=== PATIENT | male | born 1955 | race Asian ===

== ENCOUNTER 2018-04-01 07:21 | Outpatient (CLI) | payer BC, OTHER ==
[2018-04-01 08:13] LABS: BASOPHILS # (AUTO) 0.1 K/uL (0.0-8.0); BASOPHILS % (AUTO) 1.3 % (0.0-2.0); EOSINOPHILS # (AUTO) 0.1 K/uL (0.0-0.7); EOSINOPHILS % (AUTO) 1.8 % (0.0-7.0); HEMATOCRIT 43.8 % (36.7-47.1); HEMOGLOBIN 14.9 g/dL (12.5-16.3); LYMPHOCYTES # (AUTO) 1.9 K/uL (20.0-40.0); LYMPHOCYTES % (AUTO) 35.6 % (20.5-51.5); MEAN CORPUSCULAR HEMOGLOBIN 30.5 uug (23.8-33.4); MEAN CORPUSCULAR HGB CONC 34 g/dL (32.5-36.3); MEAN CORPUSCULAR VOLUME 89.6 fL (73.0-96.2); MONOCYTES # (AUTO) 0.4 K/uL (2.0-10.0); MONOCYTES % (AUTO) 7.6 % (0.0-11.0); NEUTROPHILS # (AUTO) 2.9 K/uL (1.8-8.9); NEUTROPHILS % (AUTO) 53.7 % (38.5-71.5); PLATELET COUNT (AUTO) 220 K/uL (152-348); RED BLOOD CELL COUNT(AUTO) 4.89 MIL/uL (4.06-5.63); WHITE BLOOD COUNT (AUTO) 5.4 K/uL (3.6-10.2)
[2018-04-01 08:24] LABS: *BILIRUBIN,URIN NEGATIVE (NEGATIVE); *BLOOD, URINE NEGATIVE (NEGATIVE); *CLARITY,URINE CLEAR (CLEAR); *COLOR,URINE YELLOW (YELLOW); *KETONES,URINE NEGATIVE (NEGATIVE); *PROTEIN,URINE NEGATIVE (NEGATIVE); *UROBILINOGEN,URINE 0.2 E.U./dl (NORMAL); LEUKOCYTE ESTERASE ,URINE NEGATIVE (NEGATIVE); NITRITE, URINE NEGATIVE (NEGATIVE); UGLUCOSE NEGATIVE (NEGATIVE)
[2018-04-01 08:56] LABS: BILIRUBIN,TOTAL 0.6 mg/dL (0.2-1.0); CREATININE 0.9 mg/dL (0.6-1.3); POTASSIUM 3.9 mmol/L (3.5-5.1); TOTAL PROTEIN, SERUM 7.8 g/dL (6.4-8.2); URIC ACID 4.5 mg/dL (3.5-7.2)
[2018-04-01 09:17] LABS: THYROID STIMULATING HORMONE 1.914 mIU/mL (0.358-3.740)
[2018-04-02 08:06] LABS: *TESTOSTERONE, SERUM 238 ng/dL (264-916)
== END 2018-04-01 23:59 | disposition home or self-care (01) ==
LOC: LAB 07:21
PROVIDERS: ATTEND Legal Medicine
DX: Z00.00 Encounter for general adult medical examination without abnormal findings (principal)
CPT/HCPCS: 36415; 83550; 84153; 84402; 84403; 84443; 84550; 85025

== ENCOUNTER 2019-04-06 07:32 | Outpatient (CLI) | payer BC, OTHER ==
[2019-04-06 09:35] LABS: BASOPHILS # (AUTO) 0.1 K/uL (0.0-8.0); BASOPHILS % (AUTO) 1.5 % (0.0-2.0); EOSINOPHILS # (AUTO) 0.1 K/uL (0.0-0.7); EOSINOPHILS % (AUTO) 1.4 % (0.0-7.0); HEMATOCRIT 42.9 % (36.7-47.1); HEMOGLOBIN 14.2 g/dL (12.5-16.3); LYMPHOCYTES # (AUTO) 1.5 K/uL (20.0-40.0); LYMPHOCYTES % (AUTO) 31.3 % (20.5-51.5); MEAN CORPUSCULAR HEMOGLOBIN 29.9 uug (23.8-33.4); MEAN CORPUSCULAR HGB CONC 33 g/dL (32.5-36.3); MEAN CORPUSCULAR VOLUME 90.5 fL (73.0-96.2); MONOCYTES # (AUTO) 0.3 K/uL (2.0-10.0); MONOCYTES % (AUTO) 7.5 % (0.0-11.0); NEUTROPHILS # (AUTO) 2.7 K/uL (1.8-8.9); NEUTROPHILS % (AUTO) 58.3 % (38.5-71.5); PLATELET COUNT (AUTO) 218 K/uL (152-348); RED BLOOD CELL COUNT(AUTO) 4.74 MIL/uL (4.06-5.63); WHITE BLOOD COUNT (AUTO) 4.7 K/uL (3.6-10.2)
[2019-04-06 09:36] LABS: *BILIRUBIN,URIN NEGATIVE (NEGATIVE); *BLOOD, URINE NEGATIVE (NEGATIVE); *CLARITY,URINE CLEAR (CLEAR); *COLOR,URINE YELLOW (YELLOW); *KETONES,URINE NEGATIVE (NEGATIVE); *UROBILINOGEN,URINE 0.2 E.U./dl (NORMAL); LEUKOCYTE ESTERASE ,URINE NEGATIVE (NEGATIVE); NITRITE, URINE NEGATIVE (NEGATIVE); PH,URINE 6.5 (5.0-8.0); UGLUCOSE NEGATIVE (NEGATIVE)
[2019-04-06 10:21] LABS: POTASSIUM 3.9 mmol/L (3.5-5.1)
[2019-04-06 10:22] LABS: BILIRUBIN,TOTAL 0.6 mg/dL (0.2-1.0); CREATININE 0.7 mg/dL (0.6-1.3); TOTAL PROTEIN, SERUM 7.5 g/dL (6.4-8.2); URIC ACID 4.8 mg/dL (3.5-7.2)
[2019-04-06 10:43] LABS: THYROID STIMULATING HORMONE 2.314 mIU/mL (0.358-3.740)
[2019-04-07 08:18] LABS: *TESTOSTERONE, SERUM 201 ng/dL (264-916)
== END 2019-04-06 23:59 | disposition home or self-care (01) ==
LOC: LAB 07:32
PROVIDERS: ATTEND Legal Medicine
DX: Z00.00 Encounter for general adult medical examination without abnormal findings (principal); I10 Essential (primary) hypertension
CPT/HCPCS: 36415; 82306; 83550; 84153; 84402; 84403; 84443; 84550; 85025

== ENCOUNTER 2020-07-27 07:19 | Outpatient (CLI) | payer BC, OTHER | END 2020-07-27 23:59 | disposition home or self-care (01) | LOC: LAB 07:19 | PROVIDERS: ATTEND Legal Medicine | DX: Z75.3 Unavailability and inaccessibility of health-care facilities (principal) ==

== ENCOUNTER 2020-08-03 07:25 | Outpatient (CLI) | payer BC, OTHER ==
[2020-08-03 08:20] LABS: BASOPHILS # (AUTO) 0.1 K/uL (0.0-8.0); BASOPHILS % (AUTO) 1.4 % (0.0-2.0); EOSINOPHILS # (AUTO) 0.1 K/uL (0.0-0.7); EOSINOPHILS % (AUTO) 1.8 % (0.0-7.0); HEMATOCRIT 42.4 % (36.7-47.1); HEMOGLOBIN 14.3 g/dL (12.5-16.3); LYMPHOCYTES # (AUTO) 1.4 K/uL (20.0-40.0); LYMPHOCYTES % (AUTO) 28.1 % (20.5-51.5); MEAN CORPUSCULAR HEMOGLOBIN 30.3 uug (23.8-33.4); MEAN CORPUSCULAR HGB CONC 34 g/dL (32.5-36.3); MEAN CORPUSCULAR VOLUME 89.9 fL (73.0-96.2); MONOCYTES # (AUTO) 0.4 K/uL (2.0-10.0); MONOCYTES % (AUTO) 8.2 % (0.0-11.0); NEUTROPHILS # (AUTO) 2.9 K/uL (1.8-8.9); NEUTROPHILS % (AUTO) 60.5 % (38.5-71.5); PLATELET COUNT (AUTO) 244 K/uL (152-348); RED BLOOD CELL COUNT(AUTO) 4.72 MIL/uL (4.06-5.63); WHITE BLOOD COUNT (AUTO) 4.8 K/uL (3.6-10.2)
[2020-08-03 08:41] LABS: BILIRUBIN,TOTAL 0.7 mg/dL (0.2-1.0); CREATININE 0.9 mg/dL (0.6-1.3); TOTAL PROTEIN, SERUM 7.8 g/dL (6.4-8.2)
[2020-08-03 08:42] LABS: THYROID STIMULATING HORMONE 2.173 mIU/mL (0.358-3.740)
== END 2020-08-03 23:59 | disposition home or self-care (01) ==
LOC: LAB 07:25
PROVIDERS: ATTEND Legal Medicine
DX: I10 Essential (primary) hypertension (principal); E11.9 Type 2 diabetes mellitus without complications; E78.5 Hyperlipidemia, unspecified; E03.9 Hypothyroidism, unspecified; R53.83 Other fatigue
CPT/HCPCS: 36415; 84443; 85025

== ENCOUNTER 2020-08-24 07:27 | Outpatient (CLI) | payer BC, OTHER ==
[2020-08-24] MEDS ORDERED: SWABABLE VALVE TRANSFER SET EA MC ONE (07:50)
[2020-08-24] MEDS ORDERED: IOHEXOL 350 100 ML INFUS..BTL ONE (07:50)
[2020-08-24] MEDS ORDERED: IV NORMAL SALINE 250 ML IV ONE (07:50)
== END 2020-08-24 23:59 | disposition home or self-care (01) ==
LOC: CT 07:27
PROVIDERS: ATTEND Internal Medicine Interventional Cardiology
DX: E04.1 Nontoxic single thyroid nodule (principal); I71.9 Aortic aneurysm of unspecified site, without rupture
CPT/HCPCS: 71275; Q9967; J7050

== ENCOUNTER → 2020-09-01 | Outpatient (CLI) | payer BC, OTHER | END | disposition home or self-care (01) | LOC: US 10:06 | PROVIDERS: ATTEND Legal Medicine | DX: E04.2 Nontoxic multinodular goiter (principal) ==